=== PATIENT | female | born 1940 | race Caucasian/White ===

== ENCOUNTER → 2016-08-14 | Outpatient (CLI) | payer MEDICARE, OTHER | END | disposition home or self-care (01) | LOC: PCVCIMAG 10:47 | PROVIDERS: ATTEND Internal Medicine Cardiovascular Disease | DX: I70.212 Atherosclerosis of native arteries of extremities with intermittent claudication, left leg (principal); E78.00 Pure hypercholesterolemia, unspecified; I25.10 Atherosclerotic heart disease of native coronary artery without angina pectoris; E11.9 Type 2 diabetes mellitus without complications | CPT/HCPCS: 80061; 93005; 93926; G0463 ==

== ENCOUNTER → 2017-03-14 | Outpatient (CLI) | payer MEDICARE ==
--- NOTE | 2017-03-14 14:15 | PCVCIMAG ---
EXAM: BILATERAL CAROTID DUPLEX INDICATION: Carotid Occlusive Disease. FINDINGS: Doppler Measurements (centimeters per second): RIGHT: Peak CCA-69, Peak ECA-69, Diastolic ICA-22, Peak ICA-75, ICA/CCA Ratio-1.1. LEFT: Peak CCA-90, Peak ECA-118, Diastolic ICA-25, Peak ICA-124, ICA/CCA Ratio-1.4. RIGHT CAROTID: The carotid bulb has no significant plaque. The proximal internal carotid artery shows no significant stenosis. The common carotid artery shows no significant stenosis. The external carotid artery shows no significant stenosis. LEFT CAROTID: The carotid bulb has moderate plaque. The proximal internal carotid artery shows <40% stenosis. The common carotid artery shows no significant stenosis. The external carotid artery shows no significant stenosis. Antegrade flow in both vertebral arteries. IMPRESSION: No significant stenosis of the right internal carotid artery with no significant plaque. <40% stenosis of the left internal carotid artery with moderate plaque. LOC:[place] [id number]
--- NOTE | 2017-03-14 15:23 | PCVCIMAG ---
EXAM: BILATERAL LOWER EXTREMITY ARTERIAL DUPLEX INDICATION: Peripheral Arterial Disease. Leg pain. FINDINGS: Right Leg: Satisfactory arterial waveforms in the common and profunda femoral and the superficial femoral and popliteal arteries without significant stenosis. 50% stenosis proximal/mid anterior tibial artery. Peroneal artery is patent. Posterior tibial arteries occluded throughout. Left Leg: Satisfactory arterial waveforms in the common femoral and profunda femoral arteries and the superficial femoral artery and popliteal artery without significant stenosis. Previous superficial femoral artery stent maintaining good patency. Occlusion of the proximal anterior tibial artery. The peroneal artery and posterior tibial artery are patent. IMPRESSION: No superficial femoral or popliteal artery significant stenosis bilaterally. Previous left superficial femoral artery stent maintaining good patency. Mild stenosis right anterior tibial artery with occlusion of the right posterior tibial artery and the left anterior tibial artery. LOC:[id number]
== END | disposition home or self-care (01) ==
LOC: PCVCIMAG 13:37
PROVIDERS: ATTEND Nuclear Medicine Nuclear Cardiology
DX: I65.22 Occlusion and stenosis of left carotid artery (principal); I70.202 Unspecified atherosclerosis of native arteries of extremities, left leg; I77.1 Stricture of artery; I25.10 Atherosclerotic heart disease of native coronary artery without angina pectoris; I10 Essential (primary) hypertension; E78.00 Pure hypercholesterolemia, unspecified; E11.9 Type 2 diabetes mellitus without complications; Z90.49 Acquired absence of other specified parts of digestive tract; Z96.651 Presence of right artificial knee joint; Z87.891 Personal history of nicotine dependence; Z79.82 Long term (current) use of aspirin; Z79.899 Other long term (current) drug therapy; Z88.0 Allergy status to penicillin; Z88.1 Allergy status to other antibiotic agents
CPT/HCPCS: 80061; 93005; 93880; 93925; G0463

== ENCOUNTER → 2017-11-21 | Outpatient (CLI) | payer MEDICARE ==
[~2017-11-21] MED LIST: REGADENOSON 0.4 MG/5 ML DISP.SYRIN. IV
== END | disposition home or self-care (01) ==
LOC: PCVCIMAG 08:20
DX: I25.10 Atherosclerotic heart disease of native coronary artery without angina pectoris (principal); R06.09 Other forms of dyspnea; E11.9 Type 2 diabetes mellitus without complications; E78.5 Hyperlipidemia, unspecified; Z87.891 Personal history of nicotine dependence
CPT/HCPCS: 78452; 93017; 93306; A9500; J2785

== ENCOUNTER → 2019-05-04 | Outpatient (CLI) | payer MEDICARE ==
--- NOTE | 2019-05-04 10:43 | PCVCIMAG ---
APPROVED REPORT Laterality: Bilateral Indications Stenosis Doppler Spectral Velocity Analysis PSV / EDVPSV / EDV ECA (R) 82 / 9 cm/sECA (L) 112 / 11 cm/s dICA (R) 69 / 17 cm/sdICA (L) 73 / 17 cm/s Ledy (R) 100 / 18 cm/smICA (L) 62 / 13 cm/s pICA (R) 92 / 11 cm/spICA (L) 133 / 21 cm/s Bulb (R) 56 / 8 cm/sBulb (L) 100 / 16 cm/s dCCA (R) 75 / 12 cm/sdCCA (L) 78 / 14 cm/s mCCA (R) 85 / 10 cm/smCCA (L) 86 / 16 cm/s Vert (R) 37 / 8 cm/sVert (L) 36 / 10 cm/s ICA/CCA 1.33ICA/CCA 1.71 Findings The right carotid bulb has mild plaque. The right proximal internal carotid artery shows no significant stenosis. The right common carotid artery shows no significant stenosis. The right external carotid artery shows no significant stenosis. The left carotid bulb has moderate calcified plaque. The left proximal internal carotid artery shows 40-50% stenosis. The left common carotid artery shows no significant stenosis. The left external carotid artery shows no significant stenosis. Conclusion 1. Right internal carotid artery plaquing without significant stenosis. 2. Left internal carotid artery stenosis (40-50%). 3. Antegrade vertebral flow.
--- NOTE | 2019-05-04 13:25 | PCVCIMAG ---
EXAM: ULTRASOUND OF THE THYROID INDICATION: Thyroid nodules. FINDINGS: The right thyroid lobe measures 1.8 x 2.7 x 3.9 cm. The left thyroid lobe measures 1.8 x 2.3 x 2.7 cm. 0.8 x 1.2 x 1.4 cm partially solid/partially cystic nodule mid to upper right thyroid lobe is indeterminate. Mild exophytic partially cystic/partially solid 0.7 x 0.8 x 1.0 cm nodule medial inferior left thyroid lobe also indeterminate. IMPRESSION: Right and left thyroid nodules are partially solid/partially cystic and therefore indeterminate. Further evaluation by ENT or endocrinology is recommended. LOC:[id number]
--- NOTE | 2019-05-04 14:56 | PCVCIMAG ---
EXAM: BILATERAL LOWER EXTREMITY ARTERIAL DUPLEX INDICATION: Peripheral Arterial Disease. Leg pain. FINDINGS: Right Leg: Common femoral and profunda femoral arteries are patent. Superficial femoral and popliteal artery are patent. Occlusion throughout the posterior tibial artery is unchanged. 80% stenosis tibioperoneal trunk. 50% stenosis proximal anterior tibial artery. Anterior tibial artery otherwise patent. Peroneal artery is patent. Left Leg: Common femoral and profunda femoral arteries are patent. 40-50% stenosis proximal muscogee superficial femoral artery. Previous stent mid/distal superficial femoral artery maintaining satisfactory patency. Popliteal artery is patent. Occlusion throughout the anterior tibial artery into the distal posterior tibial artery is unchanged. Peroneal artery is patent. IMPRESSION: 80% stenosis right tibioperoneal trunk. Unchanged occlusion right posterior tibial artery. 40-50% stenosis proximal muscogee left superficial femoral artery. Previous stent mid/distal left superficial femoral artery is patent. Unchanged occlusion left anterior tibial artery and distal left posterior tibial artery. LOC:[place] [id number]
== END | disposition home or self-care (01) ==
LOC: PCVCIMAG 09:20
PROVIDERS: ATTEND Internal Medicine Cardiovascular Disease
DX: I65.23 Occlusion and stenosis of bilateral carotid arteries (principal); E04.2 Nontoxic multinodular goiter; I70.293 Other atherosclerosis of native arteries of extremities, bilateral legs; I25.10 Atherosclerotic heart disease of native coronary artery without angina pectoris; E78.00 Pure hypercholesterolemia, unspecified; E11.9 Type 2 diabetes mellitus without complications; I10 Essential (primary) hypertension; E04.1 Nontoxic single thyroid nodule; Z82.49 Family history of ischemic heart disease and other diseases of the circulatory system; Z87.891 Personal history of nicotine dependence; Z88.0 Allergy status to penicillin; Z88.1 Allergy status to other antibiotic agents; Z79.82 Long term (current) use of aspirin; Z79.899 Other long term (current) drug therapy
CPT/HCPCS: 36415; 76536; 80061; 93005; 93880; 93925; G0463